=== PATIENT | male | born 1975 | race Caucasian/White ===

== ENCOUNTER 2020-01-01 16:08 | Outpatient (CLI) | payer OTHER, SELFPAY ==
--- NOTE | ~2020-01-01 | XR_ITS ---
XR abdomen/kub 1V DATE: 01/01/2020 16:30 INDICATION: Right ureteral stone. History of kidney stones. TECHNIQUE: AP projection, 2 views COMPARISON: None FINDINGS: There are several left calcified pelvic phleboliths. No definite urinary tract calcificatio n is noted. No visceromegaly is detected. The psoas shadows are intact. There is no evidence of bowel obstruction. There is slight levoscoliosis of the lumbar spine. IMPRESSION: Nonspecific abdomen; no definite urinary tract calcification is noted. Noncontrast CT abdomen pelvis examination would be more sensitive for detection of urinary tract calc chris. Reviewed, dictated and finalized at [facility]. Reviewed, dictated and finalized at location [facility]. IAMENTARY ARCHIVIST IMPRESSION: Nonspecific abdomen; no definite urinary tract calcification is not ed. Noncontrast CT abdomen pelvis examination would be more sensitive for detection of urinary tract calculi.
== END 2020-01-01 16:09 | disposition home or self-care (01) ==
PROVIDERS: PCP Physician Assistant; Visit Provider Urology
DX: N20.1 Calculus of ureter (principal)
CPT/HCPCS: 74018

== ENCOUNTER 2020-01-22 12:38 | Outpatient (CLI) | payer OTHER, SELFPAY ==
--- NOTE | ~2020-01-22 | CT_ITS ---
EXAMINATION: CT abdomen pelvis wo con DATE: 01/22/2020 13:19 INDICATION: Right ureteral stone TECHNIQUE: Computed tomography (CT) of the abdomen and pelvis was performed without intravenous contr ast. Automated exposure control and iterative reconstruction technique were employed. Exam dose: 621 .26 mGy-cm total exam DLP. COMPARISON: 01/22/2020 KUB 01/01/2020 KUB FINDINGS: The lung bases are clear of infiltrate or consolidation. Normal heart size. No pericardial or pleural effusion. There is diffuse hepatic steatosis with minimal sparing around the gallbladder. No hepatic, splenic, pancreatic, left adrenal space-occupying mass lesion. An approximately 8 x 12 mm right adrenal mass, likely a small adenoma. There is approximately 5.7 x 8 mm proximal right ureteral calculus with mild proximal hydroureteronep hrosis. No other urinary tract calculus. No left hydroureteronephrosis. No apparent renal space-occup gee mass lesion is detected on this limited noncontrast examination. Normal caliber of the abdominal aorta. No intraperitoneal or retroperitoneal or pelvic mass lesion or adenopathy or ascites. The urinary bladder, prostate gland and seminal vesicles are unremarkable. Small fat-containing left inguinal hernia. Small fat-containing umbilical hernia. Degenerative changes of the thoracic and to a lesser extent lumbar spine. No suspicious osteolytic or osteoblastic lesions. IMPRESSION: 5.7 x 8 mm proximal right ureteral calculus with mild proximal right hydroureteronephros is Hepatic steatosis Reviewed, dictated and finalized at [facility]. Reviewed, dictated and finalized at location [facility]. STONE CLEANER IMPRESSION: 5.7 x 8 mm proximal right ureteral calculus with mild proximal rig ht hydroureteronephrosis Hepatic steatosis
--- NOTE | ~2020-01-22 | XR_ITS ---
XR abdomen/kub 1V DATE: 01/22/2020 13:10 INDICATION: Right ureteral stone TECHNIQUE: AP projection, 2 views COMPARISON: 01/22/[address] abdomen pelvis FINDINGS: There is a radiographically detectable calcified calculus overlying the right ureter at the L3 level, corresponding to the documented proximal right ureteral approximately 5.7 by 8 mm calculus on the 01/22/2020 CT abdomen pelvis examination. The psoas shadows are intact. No visceromegaly is evident. No evidence of bowel obstruction. IMPRESSION: Approximately 5.7 by 8 mm (by CT measurement) calculus in the right ureter at L3 level Reviewed, dictated and finalized at [facility]. Reviewed, dictated and finalized at location [facility]. BILITATION MEDICINE PHYSICIAN
== END 2020-01-22 12:39 | disposition home or self-care (01) ==
PROVIDERS: PCP Physician Assistant; Visit Provider Urology
DX: N20.1 Calculus of ureter (principal); N13.30 Unspecified hydronephrosis; K76.0 Fatty (change of) liver, not elsewhere classified
CPT/HCPCS: 74018; 74176

== ENCOUNTER 2020-01-31 01:16 | Outpatient (CLI) | payer OTHER, SELFPAY ==
[2020-01-31 18:59] LABS: SARS-CoV-2 RNA PCR Negative
== END 2020-01-31 01:17 | disposition home or self-care (01) ==
LOC: ANHCOVIDDT 01:16
PROVIDERS: PCP Physician Assistant; Visit Provider Urology
DX: Z01.812 Encounter for preprocedural laboratory examination (principal); Z20.828 Contact with and (suspected) exposure to other viral communicable diseases
CPT/HCPCS: 87635; C9803; U0003

== ENCOUNTER 2020-02-03 01:41 | Day surgery (SDC) | payer OTHER, SELFPAY ==
[2020-02-02 09:53] VITALS: BMI 36.2
--- NOTE | 2020-02-02 10:57 | P.PNAN_ITS ---
Anes - Initial Pre Proc Eval Procedure: Operation Date: 02/03/20 07:30 Proposed Procedures p Cystoscopy, Right Retrograde Pyelogram, Right Ureteroscopy, Right Stone Extraction, Possible Right Stent Placement - Abdoul Curtis MD s Possible Holmium Laser Procedure - Abdoul Curtis MD Date/Time: 02/02/20 10:57 Surgeon: Abdoul Curtis MD Pre Op Diagnosis: Right Ureteral Stone Patient Data Age: 44 Gender: M Height: 1.75 m Weight: 111.36 kg Allergies Allergy/AdvReac Type Severity Reaction Status Date / Time Penicillins Allergy Anaphylaxis Verified 02/03/20 06:37 erythromycin base AdvReac Nausea and Verified 02/03/20 06:37 Vomiting hydrocodone [From Vicodin] AdvReac Rash Verified 02/03/20 06:37 Home Medications Medication Instructions Recorded Confirmed Type lisinopril-hydrochlorothiazide 1 tablet DAILY 02/02/20 02/03/20 History Patient hx anesthesia problems: none Family hx anesthesia problems: none [facility] Past Medical History Medical History (Updated 02/02/20 @ 10:58 by Chidi Ralph MD) Asthma HTN (hypertension) Obesity Social History Social History Smoking status: Former smoker Additional smoking assessment comments: STATES <PK/WEEK/5YRS QUIT 2004 Alcohol intake: current Drinks per week: 1 Substance use: never Living arrangements: with family Spiritual care concerns: No Anes - Eval Final PreProcedure Day of Procedure 02/02/20 10:57 Patient weight: obese Heart: regular rate and rhythm Lungs: clear to auscultation and normal air movement Airway: Mallampati scale class II Neurological: alert and oriented Last oral intake: >/= 8 hours ASA classification: III Emergent: no Anesthetic plan: proceed Anesthesia type and monitoring: general LMA Informed Consent: The patient's anesthetic plan and its attendant risks and benefits were discussed with the patient/family/POA. Questions were solicited and answers provided to the satisfaction of the patient/family/POA.
--- NOTE | ~2020-02-03 | XR_ITS ---
EXAMINATION: XR retrograde pyelo w/stent RT EXAM DATE: 02/03/2020 08:12 INDICATION: Right-sided stent placement, retrograde. TECHNIQUE: Fluoroscopy used during XR retrograde pyelo w/stent RT performed by Dr. Abdoul rodriguez MD. The DAP for this procedure was 452 radcm2. Cine run(s) available for review. FINDINGS: Right ureter was cannulated, injected. There is mild right-sided hydronephrosis. A right-s ided double-J ureteral stent was placed. Correlate with procedure note. IMPRESSION: Fluoroscopy used during XR retrograde pyelo w/stent RT. Reviewed, dictated and finalized at location [facility]. CTOR OF STUDENT SERVICES
--- NOTE | 2020-02-03 05:52 | ECG_ITS ---
Measurements Intervals [place] Rate: 78 P: 42 AR: 145 QRS: 0 QRSD: 94 T: 81 QT: 368 QTc: 420 Interpretive Statements SINUS RHYTHM INCOMPLETE RIGHT BUNDLE BRANCH BLOCK BORDERLINE ST-T WAVE ABNORMALITY- HIGH LATERAL LEADS BORDERLINE ECG Electronically Signed On 02-03-2020 7:48:37 MOBILE APPLICATION ARCHITECT by Lul Arroyo D.O.
--- NOTE | 2020-02-03 06:49 | WPDHPUPDATE1 ---
History and Physical Update Update Date/Time: 02/03/20 06:49 History and Physical has been reviewed, including an updated exam of the patient. There are NO changes in the patient's condition. Risks, benefits, and alternatives have been discussed and questions answered. Patient agrees to proceed with procedure. Proceed with cysto, right retrograde, right ureteroscopy with stone extraction, possible laser and stent placement
[2020-02-03] MEDS: LACTATED RINGERS 1,000 ML 30 ML IV CONT (06:52)
[2020-02-03 07:00] VITALS: BP 146/94; PULSE 87; RESP 20; TEMP 35.8; O2SAT 98
[2020-02-03 07:01] VITALS: BMI 36.1
[2020-02-03 07:08] LABS: Anion Gap 8 mmol/L (8-16); Blood Urea Nitrogen 12 mg/dL (9-20); Calcium 9.1 mg/dL (8.4-10.2); Carbon Dioxide 29 mmol/L (22-30); Chloride 100 mmol/L (98-107); Estimated CRCL calculation 166 ml/min; Estimated Glomerular Filt Rate > 60; Glucose 188 mg/dL (75-110); Potassium 3.7 mmol/L (3.4-5.0); Sodium 137 mmol/L (137-145)
[2020-02-03] MEDS: LIDOCAINE HCL 2% GEL UROJET 10 ML PKG MUCOUS MEM (07:23)
[2020-02-03] MEDS: levoFLOXacin 500 MG/D5W 100 ML 500 MG/100 ML BAG 100 MG IVPB (07:25)
--- NOTE | 2020-02-03 08:05 | PM.PROC ---
Procedure Note - Detailed Date of procedure: 02/03/20 Pre-op diagnosis: Right Ureteral Stone Post-op diagnosis: same Procedure performed: Cystoscopy, right retrograde pyelogram, right ureteroscopy with holmium laser, stone extraction, right ureteral stent placement 4.8 Ecuadorean contour Description of procedure: Patient is taken to the operative suite and correctly identified. Once anesthesia was obtained he was placed in dorsal lithotomy position and prepped and draped usual sterile fashion. Twenty-two Ecuadorean scope was inserted into the bladder. There are no tumors noted. The right ureteral orifice was cannulated with a guidewire. He had a stone measuring 8 mm in the proximal ureter. A ureteral access sheath was then placed. Mini flexible ureteral scope was inserted the stone was visualized. It was too large to retrieve 1 piece. Using a 200 70 micron fiber we fragmented the stone into multiple pieces. Some of the pieces were sent for analysis the others were too small to retrieve. Reinspection revealed no residual stones in the ureter. Pyelogram was then performed to confirm placement of the stent. 4.8 [place]cuadorean contour stent was then placed with the proximal end coiled in the renal pelvis and the distal in the bladder. Bladder was drained. 2% viscous lidocaine inserted urethra patient is taken recovery room stable condition. He will follow up in a week's time for stent removal. Anesthesia: GLMA Surgeon: Abdoul Curtis MD Drains: Yes Packing: No Pathology: yes Complications: No immediate complications Condition: stable Disposition: PACU
[2020-02-03 08:10] VITALS: BP 137/94; PULSE 92; RESP 16; TEMP 36.1; O2SAT 99
[2020-02-03 08:25] VITALS: BP 118/87; PULSE 76; RESP 14; O2SAT 94
[2020-02-03 08:35] VITALS: BP 121/88; PULSE 82; RESP 16; O2SAT 98
[2020-02-03 08:38] VITALS: BP 129/78; PULSE 77; RESP 20
[2020-02-03 09:05] VITALS: BP 129/78; PULSE 77; RESP 20
== END 2020-02-03 09:22 | disposition home or self-care (01) ==
PROVIDERS: Anesthesiology; PCP Physician Assistant; Visit Provider Urology
PROC: (CPT 52352; principal; 2020-02-03 07:30)
PROC: (CPT 52332; 2020-02-03 07:30)
DX: N13.2 Hydronephrosis with renal and ureteral calculous obstruction (principal); I10 Essential (primary) hypertension; J45.909 Unspecified asthma, uncomplicated; E66.9 Obesity, unspecified; Z68.36 Body mass index [BMI] 36.0-36.9, adult; Z87.891 Personal history of nicotine dependence
CPT/HCPCS: 52332; 52352; 36415; 74420; 80048; 82365; 88300; 93005; A9270; C1769; C1894; C2617; J1100; J1956; J2405; J2704; J3010; J7120; Q9966